=== PATIENT | male | born 1995 | race Caucasian/White ===

== ENCOUNTER 2024-06-26 19:08 | Emergency (ER) | payer MEDICAID, SELFPAY ==
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
[2024-06-26 19:21] VITALS: BP 128/79; PULSE 84; RESP 16; TEMP 36.9; O2SAT 99; BMI 29.1
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
[2024-06-26 20:28] VITALS: BP 130/70; PULSE 80; RESP 17; TEMP 36.8; O2SAT 96
[2024-06-26 22:15] VITALS: BP 135/86; PULSE 65; RESP 16; TEMP 36.3; O2SAT 98
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
[2024-06-26 22:39] VITALS: BP 135/86; PULSE 65; RESP 16; TEMP 36.3; O2SAT 98
== END 2024-06-26 22:40 | disposition home or self-care (01) ==
PROVIDERS: Emergency Provider Student in an Organized Health Care Education/Training Program
DX: S13.4XXA Sprain of ligaments of cervical spine, initial encounter (principal); S49.92XA Unspecified injury of left shoulder and upper arm, initial encounter; M54.2 Cervicalgia; R51.9 Headache, unspecified; V43.52XA Car driver injured in collision with other type car in traffic accident, initial encounter; Y93.9 Activity, unspecified; Y92.488 Other paved roadways as the place of occurrence of the external cause; Y99.8 Other external cause status
CPT/HCPCS: 72125; 73030; 99284

== ENCOUNTER → 2025-10-15 15:52 | Outpatient (BNVA) | payer OTHER, SELFPAY | PROVIDERS: Visit Provider Physician Assistant | DX: Z13.89 Encounter for screening for other disorder (principal) | CPT/HCPCS: 73610; 99204 ==

== ENCOUNTER → 2025-10-19 10:09 | Outpatient (BNVA) | payer OTHER, SELFPAY | PROVIDERS: Visit Provider Internal Medicine | DX: Z13.89 Encounter for screening for other disorder (principal) | CPT/HCPCS: 99213 ==

== ENCOUNTER → 2025-10-26 09:53 | Outpatient (BNVA) | payer OTHER, SELFPAY | PROVIDERS: Visit Provider Internal Medicine | DX: Z13.89 Encounter for screening for other disorder (principal) | CPT/HCPCS: 99213 ==